=== PATIENT | female | born 1985 | race Caucasian/White ===

== ENCOUNTER 2023-02-05 12:54 | Outpatient (CLI) | payer BC, SELFPAY ==
[2023-02-05 21:39] LABS: Albumin* 4.3 g/dL (3.3-5.0); Chloride* 102 mmol/L (96-114); Sodium* 137 mmol/L (135-149)
[2023-02-05 21:40] LABS: Potassium* 4.1 mmol/L (3.6-5.1)
[2023-02-05 21:42] LABS: Alanine Aminotransferase* 24 U/L (4-35); Alkaline Phosphatase* 76 U/L (40-150); Aspartate Amino Transferase* 24 U/L (12-35); Bilirubin Total* 0.3 mg/dL (0.1-1.5); Blood Urea Nitrogen* 7 mg/dL (5-24); Carbon Dioxide* 27 mmol/L (20-32); Creatinine* 0.5 mg/dL (0.5-1.5); Estimated Glomerular Filt Rate 124 ml/min; Glucose* 130 mg/dL (60-115); Total Protein* 7.4 g/dL (6.0-8.3)
== END 2023-02-05 12:55 | disposition home or self-care (01) ==
PROVIDERS: PCP Physician Assistant Medical; Visit Provider Physician Assistant Medical
DX: F41.9 Anxiety disorder, unspecified (principal); R05.1 Acute cough; I10 Essential (primary) hypertension
CPT/HCPCS: 80053; 84443

== ENCOUNTER 2023-02-12 14:24 | Outpatient (CLI) | payer BC, SELFPAY | END 2023-02-12 14:25 | disposition home or self-care (01) | PROVIDERS: PCP Physician Assistant Medical; Visit Provider Family Medicine | DX: Z00.00 Encounter for general adult medical examination without abnormal findings (principal); N92.0 Excessive and frequent menstruation with regular cycle; E03.9 Hypothyroidism, unspecified; F41.9 Anxiety disorder, unspecified; Z13.6 Encounter for screening for cardiovascular disorders; Z86.32 Personal history of gestational diabetes | CPT/HCPCS: 80053; 80061; 84443 ==

== ENCOUNTER 2025-04-02 21:40 | Emergency (ER) | payer BC, SELFPAY ==
--- OUTSIDE RECORDS SUMMARY | 2025-04-02 21:42 | XMS_ITS | Encounter Summary ---
Author Organization [facility] Address [address] [place] [address] Care Team Providers Care Plywood Layup Line Back Feeder Name Role Phone Carissa Isaac MD Primary Care Provider [phone] Encounter Details Date Type Department Care Team (Late st Contact Info) Description 05/26/2016 Consent for Procedure/Treatment [facility] Department Social History Tobacco Use Types Packs/Day Years Used Date Smoking Tobacco: Never Smokeless Tobacco: Never Alcohol Use Standard Drinks/Week Comments Yes 0 (1 standard drink = 0.6 oz pur e alcohol) occassionally Comments No Sex and Gender Information Value Date Recorded Sex Assigned at Not on file Legal Sex Female 4:58 AM CDT Gender Identity Not on file Sexual Orientation Not on file 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
--- OUTSIDE RECORDS SUMMARY | 2025-04-02 21:42 | XMS_ITS | Encounter Summary ---
Author Organization [facility] Address [address] [place] [address] Care Team Providers Care Trail Construction Worker Name Role Phone Carissa Isaac MD Primary Care Provider [phone] Encounter Details Date Type Department Care Team (Late st Contact Info) Description 01/02/2013 Emergency Room External to [facility] Social History Tobacco Use Types Packs/Day Years Used Date Smoking Tobacco: Never Smokeless Tobacco: Never Alcohol Use Standard Drinks/Week Comments No 0 (1 standard drink = 0.6 oz pur e alcohol) Comments No Sex and Gender Information Value Date Recorded Sex Assigned at Not on file Legal Sex Female 4:58 AM CDT Gender Identity Not on file Sexual Orientation Not on file documented as of this encounter Progress Notes * [facility], PROVIDER - 01/02/2013 12:00 AM CST MANAGER documented in this encounter Plan of Treatment Not on file documented as of this encounter Visit Diagnoses Not on filedocumented in this encounter Additional Health Concerns Infection Onset Date Last Indicated Resolved Time R/O COVID19 05/27/2020 05/27/2020 05/30/2020 7:18 PM CDT R/O COVID19 06/14/2020 06/14/2020 06/16/2020 9:53 PM CDT documented as of this encounter Care Teams Trail Construction Worker Relationship Specialty Start Date End Date Carissa Isaac MD [address] [place] [address] PCP - General 03/13/09 documented as of this encounter
--- OUTSIDE RECORDS SUMMARY | 2025-04-02 21:42 | XMS_ITS | Clinical Summary ---
Author Organization [facility] Address [address] [place] [address] Care Team Providers Care Etl Analyst Name Role Phone Lee Ann Huizar MD Primary Care Provider [phone] Source Comments You are receiving this document as you are listed as the primary care provider,follow-up provider, or the patient has been referred to you for consultation.This is in compliance with the Medicare andMedicaid EHR Incentive Program,which states Providers who transition their patient to another setting of careor provider of care or refers their patient to another provider of care shouldprovide summary care record for each transition of care or referral. [facility] Allergies Active Allergy Reactions Criticality Noted Date Comments Hydrocodone Rash Low 06/17/2016 Oxycodone Other, see comments 06/15/2007 Itching and tachycardia Oxycodone-Acetaminoph en Breathing Difficulty High 11/18/2015 Medications * This document contains information received from the source organization and may not represent a complete record from that organization. Cetirizine HCl (ZYRTEC ALLERGY) 10 MG CAPS As directed PRN Act gregory fluticasone (FLONASE) 50 MCG/ACT nasal solutionIndicati ons:Nasal pain,Allergic rhinitis, cause unspecified Apply or instill 2 Sprays into both nostrils daily. 16 g 1 5 Active Additional Information Patient not taking.Reported on 06/17/2016 HYDROcodone-acet aminophen (AKA NORCO) 5-325 MG tablet Take 1-2 Tabs by mouth every 4 hours as needed for Pain. 20 Tab 0 6 Active Additional Information Patient not taking.Reported on 06/17/2016 Active Problems Problem Noted Date Diagnosed Date Calculus of gallbladder with out cholecystitis without obstruction 05/26/2016 Cholelithiasis 03/13/2015 Headache 11/30/2008 Allergic rhinitis 04/15/2007 Overview (08/15/2015): Epic Endometriosis of ovary 11/03/2005 Irritable bowel syndrome 06/02/2004 Generalized hyperhidrosis 06/02/2004 Other atopic dermatitis and related conditions 0 03/27/2004 Overview (06/12/2009): Comment: erioral dermatitis nasal region Resolved Problems Problem Noted Date Diagnosed Date Resolved Date in multigravida 09/09/2012 Supervision of high-risk 12/24/2009 10/22/2011 Gestational diabetes mellitus, antepartum 10/25/2009 11/01/2011 Encounter for supervision of normal in multigravida 08/19/2009 01/20/2010 Female genital symptoms 07/04/200906/2011 Overview (08/15/2015): Epic Urinary tract infection 07/04/200906/2011 Overview (08/15/2015): Epic Disorder of breast 06/17/2009 1 Overview (07/24/2015): ICD 10 Endometriosis of other specified sites 06/03/2009 08/15/2009 Abdominal pain, left lower quadrant 05/29/2009 08/15/2009 Abdominal pain 05/29/2009 08/15/2009 Overview (08/15/2015): Epic Vaginitis and vulvovaginitis 05/09/2009 08/15/2009 Overview (08/15/2015): Epic Allergic rhinitis due to ani mal hair and dander 02/21/2009 08/15/2009 Overview (08/15/2015): Epic Acute sinusitis 12/05/2008 08/15/2009 Overview (08/15/2015): Epic Contact dermatitis due to furs 10/08/2008 11/01/2011 Overview (08/15/2015): Epic Other anxiety states 10/08/2008 011 Malaise and fatigue 08/30/2008 08/15/20 09 Overview (07/07/2017): Other malaise and fatigue Acute pharyngitis 08/17/2008 08/15/2009 Insomnia 08/17/2008 10/22/2011 Overview (08/15/2015): Epic Rash and other nonspecific skin eruption 07/30/2008 08/15/2009 Muscle pain 12/29/2007 11/01/2011 Overview (07/07/2017): Epic ; Myalgia and myositis Dizziness and giddiness 12/21/200710/15 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 10/22/2011 Overview (07/07/2017): 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) Lumbago 06/15/2007 10/22/2011 Overview (06/13/2009): Comment: mild strain, resolving Pain in joint, pelvic region and thigh 04/15/2007 08/15/2009 Physiologic disturbance of t emperature regulation 01/18/2007 11/01/2011 Diarrhea 01/18/2007 11/01/2011 Diarrhea of presumed infectious origin 01/18/2007 08/15/2009 Acute lymphadenitis 06/03/2006 08/15/20 09 Absence of menstruation 09/17/200510/15 Ovarian cyst 09/01/2005 11/01/2011 Overview (07/07/2017): Other and unspecified ovarian cyst Pain in thoracic spine 06/02/200410/22 Immunizations Immunization Administration Dates Next Due DTP 08/02/1991, 7,04/05/1986,1985,1985 Flu Vac (3+ yrs) 07/29/2009,10/08/2008 H1N1 Miv Nov[employer] 4+ Yr Trac e Preserv (Inj)(Imm) 10/30/2009 HepB Ped/Adol (0-18 yrs) 06/02/2004,09/27/2001,1 MMR 04/30/1998,03/25/1987 MPSV4 (Menomune) 06/04/2004 OPV, Trivalent (Orimune or tOPV) 991,01/07/1987,01/29/1986,1985 TB Skin Test (PPD) 06/02/2004 Td (7+ yrs) 04/30/1998 Tdap 08/06/2008 Family History Medical History Relation Name Comments Hypertension Father Other Mother 2 ovarian cysts ; Other Sister 3 ovarian cysts;c olitis Relation Name Status Comments Father Alive CAD, CABG Mother 1 Ovarian cysts . Mother 2 Alive Brother 1 Alive Brother 2 Alive Daughter Alive Maternal Grandfather Maternal Grandmother Other Alive Paternal Grandfather Paternal Grandmother Sister 1 Ovarian cysts. 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 on file Not on file Not on file Last Filed Vital Signs Vital Sign Reading Time Taken Comments Blood Pressure 112/71 06/17/2016 3:05 PM CDT Pulse 77 06/17/2016 3:05 PM CDT Temperature 37 C (98.6 F) 06/17/2016 3:05 PM CDT Respiratory Rate 18 06/03/2016 12:30 PM CDT Oxygen Saturation 100% 06/03/2016 12:30 PM CDT Inhaled Oxygen Concentration - - Weight 51.7 kg (114 lb) 06/03/2016 7:45 AM CDT Height 162.6 cm (5' 4) 06/03/2016 7:45 AM CDT Body Mass Index 19.57 06/03/2016 7:45 AM CDT Plan of Treatment Health Maintenance Due Date Last Done Comments Hep C Screening (Preventive Services) 1985 Cervical Cancer Screening 01/02/20162014, 12/25/2013, 04/25/2012, Additional history exists Adult Preventive Visit 01/02/2017 01/02/2015, 2013 DTaP/Tdap/Td Vaccine (7 - Tdap) 08/06/2018 08/06/2008, 04/30/1998, 08/02/1991, Additional history exists COVID-19 Vaccine (2023- season) 2024 Influenza Vaccine (Season Ended) 2025 07/29/2009, 10/08/2008 Zoster/Shingles Vaccine (1 of 2) 2035 IPV (Polio) Vaccine Completed 08/02/1991, 01/07/1987, 01/29/1986, Additional history exists HepB Vaccine Completed 06/02/2004, 09/15, 09/13/1998 MCV4 Vaccine Aged Out 06/04/2004 No longer eligi ble based on patient's age to complete this topic HIV Screening (Preventive Services) Completed 06/03/2012, 06/14/2009, 06/14/2009 HPV Vaccine Aged Out No longer eligi ble based on patient's age to complete this topic HepA Vaccine Aged Out No longer eligi ble based on patient's age to complete this topic Hib Vaccine Aged Out No longer eligi ble based on patient's age to complete this topic Meningococcal B Vaccine Aged Out No l onger eligible based on patient's age to complete this topic Pneumococcal Vaccine Aged Out No long er eligible based on patient's age to complete this topic Procedures Procedure Name Priority Date/Time Associated Diagnosis Comments PAP TEST, ROUTINE Routine 01/02/2015 2:3 3 PM AUTOMATION TEST ENGINEER Encounter for screening for malignant neoplasm of cervix HIV ANTIBODY Routine 06/03/2012 2:27 PM CDT Supervision of other high-risk from Last 3 Months or Most Recently Relevant to Health Maintenance Results * PAP TEST, ROUTINE (01/02/2015 2:33 PM AUTOMATION TEST ENGINEER) Cytology, Pap (NOTE) Histopathology Technician Cytology Report Patient Name: JUDE SALGADO Taken: 01/02/2015 Received: 01/03/2015 Reported: 01/11/2015 Physician(s): LEE ANN HUIZAR ([id number]) Source of Specimen Pap Test, Routine Cervical/Endocervi sharlene: Specimen Adequacy Satisfactory for evaluation. Endocervical component absent. Final Cytologic Interpretation/Res ult NEGATIVE FOR INTRAEPITHELIAL LESION OR MALIGNANCY (NILM) Electronically Signed Out By Jackie HUTCHINS (ASCP) Jackie HUTCHINS (ASCP) Pap Smear History Date of Last Menstrual Period: 12/19/2014 Microscopic Description Microscopic examination is performed. [facility] Department of Pathology [address] [place] [id number] [facility] 01/02/2015 2:33 PM AUTOMATION TEST ENGINEER 01/03/2015 10:03 AM AUTOMATION TEST ENGINEER us Lee Ann Huizar MD LAB_1 Final Result Performing Organization Address City/[facility]/ZIP Co de Phone Number [facility] [phone] * HIV 1/2 Antibody[0404] (06/03/2012 2:27 PM CDT) HIV 1/2 Antibody Negative (Non Reactive) [facility] Comment: HIV Antibody testing may be falsely negative during the window period. If the patient has had recent exposure (within the past four weeks), consider contacting Infectious Diseases for clarification. [facility] 06/03/2012 2:27 PM CDT 06/03/2012 2:30 PM CDT us Lee Ann Huizar MD LAB_1 Final Result [facility] [address] [address] from Last 3 Months or Most Recently Relevant to Health Maintenance Insurance BCBS OUT OF STATE BCBS OUT OF STATE Advance Directives * Full Code (Latest Code Status on File) Date Activated Date Inactivated Comments 06/03/2016 7:49 AM 06/03/2016 5:38 PM Care Teams Etl Analyst Relationship Specialty Start Date End Date Lee Ann Huizar MD [address] [place] [address] PCP - General 03/13/09
--- OUTSIDE RECORDS SUMMARY | 2025-04-02 21:42 | XMS_ITS | Clinical Summary ---
Author Organization [facility] Address [address] [place] [address] Care Team Providers Care Hose Tester Name Role Phone Clinic, [facility] Primary Care Provider Allergies Active Allergy Reactions Criticality Noted Date Comments Hydrocodone Rash Low 06/17/2016 Oxycodone-Acetaminophen Palpitations,Dif ficulty breathing High 10/01/2015 Medications Ferrous Sulfate (IRON SUPPLEMENT PO) Activ e norethindrone-e thinyl estradiol (ORTHO-NOVUM 1-35 TAB,NORTREL 1-35 TAB) 1-35 MG-MCG tablet Take 2 tablets daily until bleeding stops, then take 1 tablet daily until follow-up. 30 tablet 1 03/11/2019 Active Active Problems Problem Noted Date Diagnosed Date Excessive or frequent menstruation 02/08/2017 Iron deficiency anemia due to chronic blood loss 01/29/2017 Endometriosis 01/29/2017 Calculus of gallbladder with out cholecystitis without obstruction 05/26/2016 Screening for cervical cancer Overview (08/29/2018): Normal paps [id number], 2011 and 2015 per Care Everywhere Immunizations Immunization Administration Dates Next Due HepB 06/02/2004,09/27/2001,09/13/1998 Historical DTP/aP 08/02/1991, 7,04/05/1986,01/29/1986,1985 Influenza (intradermal) 10/30/2009,10/08/2008 MMR (MMRII) 04/30/1998,03/25/1987 Meningococcal,unspecified 06/04/2004 OPV, trivalent, live 08/02/1991,01/07/1987,01/29,1985 TD,PF 7+ (Tenivac) 04/30/1998 TDAP Vaccine (Adacel) 08/06/2008 Family History Medical History Relation Comments Coronary Artery Disease Father Ovarian Cancer Maternal Aunt Other Cancer Maternal Grandfather Prostate Cancer Maternal Grandfather Breast Cancer Maternal Grandmother Heart Defect Maternal Grandmother Breast Cancer Mother Breast Cancer Paternal Grandmother Crohn's Disease Sister Relation Status Comments Father Maternal Aunt Maternal Grandfather Maternal Grandmother Mother Paternal Grandfather Paternal Grandmother Sister Social History Tobacco Use Types Packs/Day Years Used Date Smoking Tobacco: Never Smokeless Tobacco: Never Alcohol Use Standard Drinks/Week Comments Yes 0 (1 standard drink = 0.6 oz pur e alcohol) PHQ-2 Answer Date Recorded PHQ-2 Score 2 08/19/2018 Adolescent Education Answer Date Record ed Getting School Help Needed Not on file 08/06 Comments No Sex and Gender Information Value Date Recorded Sex Assigned at Not on file Legal Sex Female 4:42 PM CDT Gender Identity Not on file Sexual Orientation Not on file Last Filed Vital Signs Vital Sign Reading Time Taken Comments Blood Pressure 108/62 03/11/2019 3:30 PM CDT Pulse 76 03/11/2019 3:30 PM CDT Temperature 37.2 C (98.9 F) 03/11/2019 12:21 PM CDT Respiratory Rate 16 03/11/2019 3:58 PM CDT Oxygen Saturation 99% 03/11/2019 3:45 PM CDT Inhaled Oxygen Concentration - - Weight 52 kg (114 lb 10.2 oz) 03/11/2019 12:21 P M CDT Height 162.6 cm (5' 4) 03/11/2019 12:21 PM CDT Body Mass Index 19.68 03/11/2019 12:21 PM CDT Plan of Treatment Not on file Insurance BCBS OUT OF STATE [place] OF [place] Care Teams Hose Tester Relationship Specialty Start Date End Date [facility] [address] [place] [address] PCP - General 03/11/19
--- OUTSIDE RECORDS SUMMARY | 2025-04-02 21:42 | XMS_ITS | Encounter Summary ---
Author Organization [facility] Address [address] [place] [address] Care Team Providers Care Restaurant And Bar Manager Name Role Phone Carissa Isaac MD Primary Care Provider [phone] Encounter Details Date Type Department Care Team (Late st Contact Info) Description 12/26/2012 Outside Hospital External to External, [place] [address] H AND P Social History Tobacco Use Types Packs/Day Years Used Date Smoking Tobacco: Never Smokeless Tobacco: Never Alcohol Use Standard Drinks/Week Comments No 0 (1 standard drink = 0.6 oz pur e alcohol) Comments Unknown Sex and Gender Information Value Date Recorded Sex Assigned at Not on file Legal Sex Female 4:58 AM CDT Gender Identity Not on file Sexual Orientation Not on file documented as of this encounter Progress Notes * External, Provider - 12/26/2012 12:00 AM CST TERMAN documented in this encounter Plan of Treatment Not on file documented as of this encounter Visit Diagnoses Not on filedocumented in this encounter Additional Health Concerns Infection Onset Date Last Indicated Resolved Time R/O COVID19 05/27/2020 05/27/2020 05/30/2020 7:18 PM CDT R/O COVID19 06/14/2020 06/14/2020 06/16/2020 9:53 PM CDT documented as of this encounter Care Teams Restaurant And Bar Manager Relationship Specialty Start Date End Date Carissa Isaac MD [address] [place] [address] PCP - General 03/13/09 documented as of this encounter
--- OUTSIDE RECORDS SUMMARY | 2025-04-02 21:42 | XMS_ITS | Clinical Summary ---
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 CT) Active 01/23 Lico Carter MD Burning mouth syndrome Paresthesia 01008615 (SNOMED CT) Active 01/23 Lico Carter MD Paresthesia Loss of coordination 259368999 (SNOMED CT) Active 06/06 Max Gama MD Decreased coordination Visual changes 47097501 (SNOMED CT) Active 06/06 Max Gama MD Disorder of vision Medications Medication Instructions Start Date Stop Date Generic Name NDC Provider Gxffq-[id number] Ethyl Esters (Fish Oil) Unknown Strength CAP Daily Gcala-5-Ufir Eth yl Esters (Fish Oil) Unknown Strength CAP System Maintenance VITAMIN D2 10 MCG (400 UNIT) TABS Twice A Day Cholecalciferol (Vitamin D) Unknown Strength TAB 42969999651 System Maintenance Ascorbic Acid (Vitamin C) Unknown Strength TAB Daily Ascorbic Acid (Vitamin C) Unknown Strength TAB [id number] System Maintenance Medications Administered No information available. Allergies, Adverse Reactions, Alerts Allergy Name Reaction Description Start Date Severity Statu s Provider HYDROCODONE Moderate Active Max Gama MD Oxycodone rapid heartbeat and itching Severe Active Max Gama MD Acetaminophen Rash Mild Active Beatriz Gama MD Results Date Name Value Unit Range Flag Description Office Visit: DISCOORDINATIO N/VISION CHANGES 06/06/20 09:07- 06/06/20 09:0... MEDS REVIEW Done Documenta tion of current medications (procedure) SMOK STATUS never smoker Tobacco smoking status Internal Other: Authorizatio n - OBS [email or web address] Yes Authoriza tion: Release of Information - Authorize [facility] - Payment and Healthcare Operations ROIAUTHOTHER Yes Authoriz ation: Release of Information - Authorize Others/Insurance - Payment and Healthcare Operations HIECONSENT Yes Consent To Release information to the Health Information Exchange (HIE) [email or web address] Yes Authorizat ion: Authorization for [facility] to leave messages, voicemail, send text messages, send emails AUTHRELHCARE Yes Authoriz ation: Release/Retrieval of Information to/from Healthcare Facilities, Pharmacy Benefit Payers and Providers AUTHPRIVPRAC Yes Authoriz ation: Notice of privacy practices AUTHBENEFIT Yes Authoriza tion: Assignment of Benefits and Payment Agreement Internal Other: Verbal Autho rization/Emergency Contact - OBS VERBAL_EMER Done Verbal au thorization and emergency contact Replaced Document: (P) PROTE IN, TOTAL AND PROTEIN ELECTROPHORESIS WITH IMMUNOFI ... VIT B6 * VITAMIN B6, P LASMA HGBA1C * % Hemoglobin A1c/Hemoglobin, total in Blood - % B-12 * pg/mL Cobalamin (Vi tamin B12) [Mass/volume] in Serum or Plasma TSH * u[iU]/mL Thyrotropin [Units/volume] in Serum or Plasma SSB * Sjogren's syndrome-B, extractable nuclear Ab, serum SSA * Sjogren's syndrome-A, extractable nuclear Ab, serum SCL 70 AB * SCL-70 extr actable nuclear Ab, serum CRP * mg/dL C reactive pr otein [Mass/volume] in Serum or Plasma C4 COMPLIMEN * mg/dL Compleme nt C4 [Mass/volume] in Serum or Plasma [id number] * GE use only - for LinkLogic import when terms are not otherwise specified ANASCR IFA * FAIZA SCREEN , IFA LYME DIS AB * Borrelia burgdorferi.VlsE1+pe pC10 Ab [Units/volume] in Serum by Immunoassay TTG * U/mL TTG (tissue transglutaminase antibody) ESR * mm/h Erythrocyte sedimentation rate by Westergren method METHYL MALON * nmol/L methylma lonic acid (MMA), serum CPK 39 U/L 29-143 N Creatine hermilo se [Enzymatic activity/volume] in Serum or Plasma HIV AB * HIV 2 gp125 A b [Presence] in Serum by Immunoblot INTRP * Interpretatio n ABNPROTBND3 * g/dL Abnormal Protein Band 3, g/dL ABNPROTBND2 * g/dL Abnormal Protein Band 2, g/dL ABNPROTBND * g/dL Abnormal P rotein Band 1, g/dL GAMMA GLOB * mg/dL Gamma glob ulin [Mass/volume] in Serum or Plasma by Electrophoresis [id number] * g/dL beta 2 g lobulin [id number] * g/dL beta 1 g lobulin ALPHA 2 GLOB * Alpha 2 globulin [Mass/volume] in Serum or Plasma by Electrophoresis ALPH-1 SR PE * g/dL alpha-1 globulin, serum, by protein electrophoresis ALBUM SER PE * g/dL albumin, serum by protein electrophoresis IFEINTERPUR * immunofix ation electrophoresis interpretation, urine PROTEIN, TOT * g/dL Protein [Mass/volume] in Serum or Plasma Plan of Care Type Date Detail Referral Other Referral Pending order Follow up after testing Pending order Follow up after testing Pending order MRI-Brain W/WO Pending order Instructions for Staff Pending order Physical Therapy Pending order Follow up with N eurologist or AJ Pending order Follow up with N eurologist or AJ Pending Order exclud ed from report: Pending order Follow up with N eurologist or AJ Pending order MRI-Brain W/WO Pending order MRI-Brain W/O Pending order MRI-Cervical W/O Pending order Follow up after testing Pending order Follow up after testing Pending Order exclud ed from report: Pending order FAIZA Pending order C Reactive Prote in (CRP) Qn Pending order CK (Creatine Kin ase) Total Pending order Complement C3 Pending order Complement C4 Pending order ESR (Sedimentati on Rate) Pending order Hemoglobin A1C Pending order HIV 1/2 Ab Scree david Pending order Immunofixation S pramod w/Electrophoresis Pending order Lyme Total Ab w/ Reflex (reflex to Western Blot) Pending order Methylmalonic Ac id Serum (MMA) Pending order Sjogren's Ab - S SA/SSB (ANTI-Ro/ANTI-La) Pending order t-Transglutamina se (tTG) IgA Pending order TSH Pending order Vitamin B12 Pending order Vitamin B6 (Pyri doxine) - fasting after midnight Pending order Scleroderma (Sc1 70) Antibody Pending order Obtain imaging r eport and CD Pending order Obtain imaging r eport and CD Pending Order exclud ed from report: Procedures Code Procedure Name Date Entry Date [id number] MRI-Brain W/WO CPT-V5059B ProHance Gadolinium-based MR Contrast - 1 0 ml vial CPT-10611 MRI Brain W/WO ORDERS Follow up with Neurologist or AJ ORDERS Other Referral ORDERS Instructions for Staff 05/08 ORDERS Physical Therapy ORDERS Follow up with Neurologist or AJ CPT-17667 MRI Brain W/ CPT-H4588F ProHance Gadolinium-based MR Contrast - 1 0 ml vial [id number] MRI-Brain W/WO CPT-72938 MRI Brain W/O CPT-80548 MRI Cervical W/O [id number] MRI-Brain W/O [id number] MRI-Cervical W/O ORDERS Immunofixation Serum w/Electrophoresis 05/02/11 ORDERS HIV 1/2 Ab Screening ORDERS Vitamin B6 (Pyridoxine) - fasting after m idnight ORDERS Follow up after testing 2023 ORDERS CK (Creatine Kinase) Total 2 ORDERS ESR (Sedimentation Rate) 02/15/11 ORDERS Hemoglobin A1C ORDERS TSH ORDERS Vitamin B12 ORDERS Complement C3 ORDERS Complement C4 ORDERS Sjogren's Ab - SSA/SSB (ANTI-Ro/ANTI-La) ORDERS Scleroderma (Sc170) Antibody ORDERS C Reactive Protein (CRP) Qn ORDERS Lyme Total Ab w/Refl ex (reflex to Western Blot) ORDERS t-Transglutaminase (tTG) IgA ORDERS FAIZA ORDERS Methylmalonic Acid Serum (MMA) [id number] Documentation of current medicatio ns ORDERS Obtain imaging report and CD Vital Signs Date Name Value Unit Description Weight Measured `125 [lb_av] weight E& M Weight Measured `125 [lb_av] weight E& M Height 64 [in_us] height E&M BMI (Body Mass Index) 19.29 kg/m2 Bod y Mass Index (Ratio) BP Diastolic 81 mm[Hg] blood pressu re, diastolic BP Systolic 137 mm[Hg] blood pressur e, systolic Immunizations No information available. Advance Directives No information available.
--- OUTSIDE RECORDS SUMMARY | 2025-04-02 21:42 | XMS_ITS | Encounter Summary ---
[facility] Organization [facility] Address [address] [place] [address] Care Team Providers Care Shroudman Name Role Phone Carissa Isaac MD Primary Care Provider [phone] Encounter Details Date Type Department Care Team (Late st Contact Info) Description 12/26/2012 Outside Hospital External to External, [place] [address] DELIVERY NOTE Social History Tobacco Use Types Packs/Day Years [...] External, Provider - 12/26/2012 12:00 AM CST RIMENTAL PHYSICIST documented in this encounter Plan of Treatment Not on file documented as of this encounter Visit Diagnoses Not on filedocumented in this encounter Additional Health Concerns Infection Onset Date Last Indicated Resolved Time R/O COVID19 05/27/2020 05/27/2020 05/30/2020 7:18 PM CDT R/O COVID19 06/14/2020 06/14/2020 06/16/2020 9:53 PM CDT documented as of this encounter Care Teams Shroudman Relationship Specialty Start Date End Date Carissa Isaac MD [address] [place] [address] PCP - General 03/13/09 documented as of this encounter
--- OUTSIDE RECORDS SUMMARY | 2025-04-02 21:42 | XMS_ITS | Clinical Summary ---
Author Organization [facility] Address [address] [place] [address] Care Team Providers Care Gore Seamer Name Role Phone Clinic, No Pcp Or Primary Care Provider Unavaila ble Allergies Active Allergy Reactions Criticality Noted Date Comments Oxycodone-Acetaminophen Palpitations 10/01/2015 Medications No known medications Active Problems No known active problems Immunizations Immunization Administration Dates Next Due Tdap 08/06/2008 Family History Medical History Relation Name Comments Heart Disease Father triple bypass Hypertension Father Cancer-ovarian Maternal Aunt Amparo Cancer Maternal Grandfather lymphom a, testicular Cancer-prostate Maternal Grandfather Diabetes Maternal Grandfather Cancer-breast Maternal Grandmother Heart Disease Maternal Grandmother [place] Psychiatric illness Maternal Uncle Gerardo suicid e Cancer-breast Mother bilateral mast ectomy Cancer-breast Paternal Grandmother Other Sister crohns/colitis Relation Name Status Comments Father Maternal Aunt Amparo Alive Maternal Grandfather Maternal Grandmother Maternal Uncle Gerardo Alive Mother Paternal Grandmother Sister Social History Tobacco Use Types Packs/Day Years Used Date Smoking Tobacco: Former Cigarettes 0.3 2 Smokeless Tobacco: Never Comments:smoked for a couple years as a teenager Alcohol Use Standard Drinks/Week Comments Yes 2 (1 standard drink = 0.6 oz pur e alcohol) Comments No Sex and Gender Information Value Date Recorded Sex Assigned at Not on file 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 Gender Identity Not on file Sexual Orientation Not on file Obstetrics History Last Filed Vital Signs Vital Sign Reading Time Taken Comments Blood Pressure 138/96 05/17/2019 7:22 PM CDT Pulse 83 05/17/2019 7:22 PM CDT Temperature 36.8 C (98.2 F) 05/17/2019 7:22 PM CDT Respiratory Rate 16 05/17/2019 7:22 PM CDT Oxygen Saturation 100% 05/17/2019 7:22 PM CDT Inhaled Oxygen Concentration - - Weight 51.7 kg (114 lb) 02/18/2016 10:26 AM CDT Height 163.8 cm (5' 4.5) 02/18/2016 10:26 AM CD T Body Mass Index 19.27 02/18/2016 10:26 AM CDT Plan of Treatment Health Maintenance Due Date Last Done Comments Depression screening for age 12+ 1997 HIV for age 15-65 2000 Hepatitis C screening for age 18-79 2003 BMI (ht and wt on same day) for age 18+ 02/17/2017 02/18/2016 Pap test for age 21-65 07/16/2018 [facility] Tetanus booster 08/06/2018 08/06/2008 COVID-19 vaccine series (2023- season) 2024 Influenza Vaccine (Season Ended) 2025 Tdap Completed 08/06/2008 Pneumococcal series for age 6-49 Aged Out No longer eligible based on patient's age to complete this topic Insurance [facility] Care Teams Gore Seamer Relationship Specialty Start Date End Date Clinic, No Pcp Or . PCP - General 05/17/19
--- OUTSIDE RECORDS SUMMARY | 2025-04-02 21:42 | XMS_ITS | Encounter Summary ---
Author Organization [facility] Address [address] [place] [address] Care Team Providers Care Health Outreach Worker Name Role Phone Clinic - [facility] Primary Ca re Provider Soumya Hernandez MD Unavailable [phone] Soumya Hernandez MD Unavailable [phone] [facility] Primary Care Provider Lani Cyr APRN BASKET PATCHER Unavailable [phone] Soumya Hernandez MD Unavailable [phone] Encounter Details Date Type Department Care Team (Late st Contact Info) Description 07/09/2018 [facility] [place] [facility] [address] [place] [address] [facility] Social History Tobacco Use Types Packs/Day Years Used Date Smoking Tobacco: Never Alcohol Use Standard Drinks/Week Comments [...] Diagnoses Not on filedocumented in this encounter Care Teams Health Outreach Worker Relationship Specialty Start Date End Date Clinic - [facility] [address] [place], [place] [id number] PCP - General 07/08/18 03/10/19 Soumya Hernandez MD [address] [address] PCP - Assigned PCP 08/21/18 01/17/19 [facility], [address] [address] PCP - General 03/11/19 Soumya Hernandez MD [address] [address] Assigned PCP 08/21/18 08/19/19 Lani Cyr APRN [facility] [address] [place] [address] Assigned PCP 08/20/19 02/03/20 Soumya Hernandez MD [address] [address] Assigned PCP 02/04/20 08/23/21 documented as of this encounter
--- OUTSIDE RECORDS SUMMARY | 2025-04-02 21:42 | XMS_ITS | Encounter Summary ---
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
--- OUTSIDE RECORDS SUMMARY | 2025-04-02 21:42 | XMS_ITS | Encounter Summary ---
Author Organization [facility] Address [address] [place] [address] Care Team Providers Care Stars Coordinator Name Role Phone [facility] Primary Care Provider Encounter Details Date Type Department Care Team (Late st Contact Info) Description 07/03/2024 [facility] [address] [place] [address] [facility] Social History Tobacco Use Types Packs/Day Years [...] filedocumented in this encounter Additional Health Concerns Assessment Noted Time PHQ-9 Depression Total Score: 5 08/20/20 18 7:13 AM CDT documented as of this encounter Care Teams Stars Coordinator Relationship Specialty Start Date End Date Clinic, [facility] [address] [place] [address] PCP - General 03/11/19 documented as of this encounter
--- OUTSIDE RECORDS SUMMARY | 2025-04-02 21:42 | XMS_ITS | Encounter Summary ---
Author Organization [facility] Address [address] [place] [address] Care Team Providers Care Social Science Instructor Name Role Phone Carissa Isaac MD Primary Care Provider [phone] Encounter Details Date Type Department Care Team (Late st Contact Info) Description 01/02/2013 Emergency Room External to TELEPHONE CALL Social History Tobacco Use Types Packs/Day Years [...] as of this encounter Progress Notes * [facility], PROVIDER - 01/02/2013 12:00 AM CST SHADE JOINER documented in this encounter Plan of Treatment Not on file documented as of this encounter Visit Diagnoses Not on filedocumented in this encounter Additional Health Concerns Infection Onset Date Last Indicated Resolved Time R/O COVID19 05/27/2020 05/27/2020 05/30/2020 7:18 PM CDT R/O COVID19 06/14/2020 06/14/2020 06/16/2020 9:53 PM CDT documented as of this encounter Care Teams Social Science Instructor Relationship Specialty Start Date End Date Carissa Isaac MD [address] [place] [address] PCP - General 03/13/09 documented as of this encounter
--- OUTSIDE RECORDS SUMMARY | 2025-04-02 21:43 | XMS_ITS | Encounter Summary ---
Author Organization [facility] Address [address] [place] [address] Care Team Providers Care Baffle Mounter Name Role Phone Carissa Isaac MD Primary Care Provider [phone] Encounter Details Date Type Department Care Team (Late st Contact Info) Description 06/14/2014 Correspondence External to External, [place] [address] TREATMENT NOTIFICATION Social History Tobacco Use Types Packs/Day Years [...] documented as of this encounter Care Teams Baffle Mounter Relationship Specialty Start Date End Date Carissa Isaac MD [address] [place] [phone] PCP - General 03/13/09 documented as of this encounter
--- OUTSIDE RECORDS SUMMARY | 2025-04-02 21:43 | XMS_ITS | Encounter Summary ---
Author Organization [facility] Address [address], [place] [address] Care Team Providers Care Audio Visual Equipment Rental Clerk Name Role Phone Carissa Isaac MD Primary Care Provider [phone] Encounter Details Date Type Department Care Team (Late st Contact Info) Description 12/04/2012 Correspondence [facility] CAFE TEAM MEMBER [address] [facility] [place] [address] Vi Bojorquez MD [address] [place] [address] [employer] DISABILITY CLAIM FORM Social History Tobacco Use Types Packs/Day Years Used Date Smoking Tobacco: Never Smokeless Tobacco: Never Alcohol Use Standard Drinks/Week Comments No 0 (1 standard drink = 0.6 oz pur e alcohol) Comments Yes Sex and Gender Information Value Date Recorded Sex Assigned at Not on file Legal Sex Female 4:58 AM CDT Gender Identity Not on file Sexual Orientation Not on file documented as of this encounter Progress Notes * Vi Bojorquez MD - 12/04/2012 12:00 AM CST CLIPPER documented in this encounter Plan of Treatment Not on file documented as of this encounter Visit Diagnoses Not on filedocumented in this encounter Additional Health Concerns Infection Onset Date Last Indicated Resolved Time R/O COVID19 05/27/2020 05/27/2020 05/30/2020 7:18 PM CDT R/O COVID19 06/14/2020 06/14/2020 06/16/2020 9:53 PM CDT documented as of this encounter Care Teams Audio Visual Equipment Rental Clerk Relationship Specialty Start Date End Date Carissa Isaac MD [address] [place] [address] PCP - General 03/13/09 documented as of this encounter
--- OUTSIDE RECORDS SUMMARY | 2025-04-02 21:43 | XMS_ITS | Encounter Summary ---
[facility] Address [address] [place] [address] Care Team Providers Care Senior Environmental Consultant Name Role Phone Carissa Isaac MD Primary Care Provider [phone] Encounter Details Date Type Department Care Team (Late st Contact Info) Description 03/30/2014 Emergency Room External to [facility], Provider HEADACHE-SINUS PRESSURE AND SORE THROAT Social History Tobacco Use Types Packs/Day Years [...] documented as of this encounter Care Teams Senior Environmental Consultant Relationship Specialty Start Date End Date Carissa Isaac MD [address] [place] [address] PCP - General 03/13/09 documented as of this encounter
[2025-04-02 21:45] VITALS: BP 145/94; PULSE 80; RESP 20; TEMP 36.7; O2SAT 98; BMI 23.0
--- NOTE | 2025-04-02 22:28 | ED_ITS ---
HPI - General Adult General Date Seen: 04/02/25 <Maggie Rae MD - Last Filed: 04/04/25 23:00> Chief complaint: Chest Pain <Maggie Rae MD - Last Filed: 04/04/25 23:00> Stated complaint: shortness of breath, chest pain/heart burn <Maggie Rae MD - Last Filed: 04/04/25 23:00> Time Seen by Provider: 04/02/25 22:17 <Maggie Rae MD - Last Filed: 04/04/25 23:00> History of Present Illness HPI narrative: Patient is a 39-year-old woman who is generally healthy aside from anxiety which she considers pre well controlled. She presents for evaluation of a couple of episodes of chest sensation today. One happened earlier today and the other happened just prior to coming in. She describes this as a sensation of expansion in the left side of her chest going into her neck and shoulder, lasting moments. Both of these episodes happen at rest, the 1st episode was just this expanding feeling and then she felt fine, so she blew that off. Tonight, the expanding sensation was followed by some heartburn and nausea, she says she called her sister who recommended that she come in. She does not have any prior history of coronary artery disease, hypertension, she does not smoke. She does note that her dad had bypass surgery at age 55. She does not get regular exercise but does not have any exertional symptoms. She has not had palpitations, lightheadedness or syncope. Denies any other recent illness or symptoms such as vomiting or diarrhea, fevers, cough, shortness of breath etcetera. She does not drink significantly although she did have a couple of drinks last night. She does not use any other substances. Here tonight with her . She did take a propranolol at home when this happened because she was starting to feel anxious about it and propanolol helps with her anxiety symptoms. At this time, symptoms have resolved including the heartburn sensation. She does not generally have problems with heartburn and is not on any medications for that. <Maggie Rae MD - Last Filed: 04/04/25 23:00> Related Data Home medications: Previous Rx's ?Medication ?Instructions ?Recorded propranolol 10 mg tablet 10 mg PO TID PRN anxiety #90 tabs 02/12/23 <Maggie Rae MD - Last Filed: 04/04/25 23:00> Allergies/adverse reactions: Allergies Allergy/AdvReac Type Severity Reaction Status Date / Time oxycodone Allergy Severe Palpitation Verified 04/02/25 21:50 s hydrocodone Allergy Mild Rash Verified 04/02/25 21:50 percocet Allergy Severe heart Uncoded 02/12/23 14:10 palpitations, shortness of breath <Maggie Rae MD - Last Filed: 04/04/25 23:00> Review of Systems Status of ROS: Reports: 10 or more systems reviewed and unremarkable except as noted in History and below <Maggie Rae MD - Last Filed: 04/04/25 23:00> [facility] Medical History: Medical History Microcytic anemia ?D50.9 - Iron deficiency anemia, unspecified (ICD-10) Menorrhagia ?N92.0 - Excessive and frequent menstruation with regular cycle (ICD-10) Gestational diabetes mellitus ?O24.419 - Gestational diabetes mellitus in , unspecified control (ICD-10) Endometriosis ?N80.9 - Endometriosis, unspecified (ICD-10) <Maggie Rae MD - Last Filed: 04/04/25 23:00> Surgical History: Surgical History S/P abdominal hysterectomy and left salpingo-oophorectomy ?Z90.710 - Acquired absence of both cervix and uterus (ICD-10) ?Z90.721 - Acquired absence of ovaries, unilateral (ICD-10) ?Z90.79 - Acquired absence of other genital organ(s) (ICD-10) <Maggie Rae MD - Last Filed: 04/04/25 23:00> Family History: Family History Mother Breast cancer A-fib Father Coronary artery disease, Onset Age: 55 High blood pressure Aunt Ovarian cancer Sister Crohn disease Thyroid disease Maternal Grandmother Coronary artery disease <Maggie Rae MD - Last Filed: 04/04/25 23:00> Social History: Social History Smoking Status: Former smoker service: No <Maggie Rae MD - Last Filed: 04/04/25 23:00> Exam Narrative: Exam Narrative: Vital signs reviewed In general, alert, nontoxic but age woman. She looks comfortable, breathing easily. Head: Normocephalic, atraumatic. Eyes: Sclera clear. Pupils equal and reactive. ENT: Mucous membranes moist. Neck: Supple without adenopathy. Heart: Overall heart is regular, she has a little bit of ectopy occasionally. No significant murmur. Lungs: Clear. No increased work of breathing, crackles or wheezes. Abdomen: Soft, nontender to palpation. Extremities: Well perfused, pulses intact. No significant edema. Neurologic: Alert, conversant. Speech fluent, face symmetric. Moves all extremities equally. Skin: Warm, dry well perfused. Affect: Normal. <Maggie Rae MD - Last Filed: 04/04/25 23:00> Const: Vital Signs, click to edit/add: Vital Signs - 24 hr 04/02/25 21:45 04/03/25 00:20 Temperature 98.1 F Pulse Rate [Pulse Oximeter] 80 64 Respiratory Rate 20 18 Blood Pressure [Le ft Upper Arm] 145/94 H 144/88 H Pulse Oximetry 98 99 Oxygen Delivery Me thod Room Air Room Air <Maggie Rae MD - Last Filed: 04/04/25 23:00> Vital Signs, click to edit/add: Vital Signs - 24 hr 04/02/25 21:45 04/03/25 00:20 Temperature 98.1 F Pulse Rate [Pulse Oximeter] 80 64 Respiratory Rate 20 18 Blood Pressure [Le ft Upper Arm] 145/94 H 144/88 H Pulse Oximetry 98 99 Oxygen Delivery Me thod Room Air Room Air <Mario Pena MD - Last Filed: 04/03/25 08:48> Course Course ED Course: An EKG done on arrival shows a sinus rhythm, ventricular rate of 80. No acute ST segment changes, normal corrected QT, normal T-waves. I will go ahead and put her on the monitor just to see if she is having any PVCs which perhaps could explain this unusual sensation she had in her chest. Overall my suspicion for cardiac etiology for her symptoms is relatively low, but will check some basic labs, including a troponin given her dad's history. She is PERC negative, I do not think clinically there is really any strong suggestion of PE here and I do not think she needs a D-dimer. On the monitor, she does have fairly frequent PVCs. I wonder if this initial sensation she had was the start of PVCs and she felt that 1st 1 more significantly. Retrospectively, she says that she has had these kinds of sensations not infrequently although she says she has always attributed them to gas bubbles. Her labs are reassuring, initial troponin is 0. Electrolytes including magnesium are normal. Her hemoglobin is 13.8. I have elected to do a 90 minute troponin, will just make sure that that is also normal. Overall, discussed with her I do not think these symptoms are likely related to anything like a heart attack, though the PVCs may certainly be contributing. No evidence of pneumothorax or infiltrate on chest x-ray. Discussed possibilities of esophageal spasm or gastroesophageal reflux. Given that she does not have routi ne problems with this, I think it is reasonable to just see how she does and if this is becoming something she has more frequently we would recommend PPI. For now, will be signed out to the oncoming physician to follow-up on the 2nd troponin. If negative, discharge home with outpatient follow-up in the next week. Return any time for severe symptoms new symptoms such as shortness of breath, fevers, fainting etcetera. She can try taking her propanolol little more regularly to see if that suppresses the PVCs. <Maggie Rae MD - Last Filed: 04/04/25 23:00> An EKG done on arrival shows a sinus rhythm, ventricular rate of 80. No acute ST segment changes, normal corrected QT, normal T-waves. I will go ahead and put her on the monitor just to see if she is having any PVCs which perhaps could explain this unusual sensation she had in her chest. Overall my suspicion for cardiac etiology for her symptoms is relatively low, but will check some basic labs, including a troponin given her dad's history. She is PERC negative, I do not think clinically there is really any strong suggestion of PE here and I do not think she needs a D-dimer. On the monitor, she does have fairly frequent PVCs. I wonder if this initial sensation she had was the start of PVCs and she felt that 1st 1 more significantly. Retrospectively, she says that she has had these kinds of sensations not infrequently although she says she has always attributed them to gas bubbles. Her labs are reassuring, initial troponin is 0. Electrolytes i ncluding magnesium are normal. Her hemoglobin is 13.8. I have elected to do a 90 minute troponin, will just make sure that that is also normal. Overall, discussed with her I do not think these symptoms are likely related to anything like a heart attack, though the PVCs may certainly be contributing. No evidence of pneumothorax or infiltrate on chest x-ray. Discussed possibilities of esophageal spasm or gastroesophageal reflux. Given that she does not have routine problems with this, I think it is reasonable to just see how she does and if this is becoming something she has more frequently we would recommend PPI. For now, will be signed out to the oncoming physician to follow-up on the 2nd troponin. If negative, discharge home with outpatient follow-up in the next week. Return any time for severe symptoms new symptoms such as shortness of breath, fevers, fainting etcetera. She can try taking her propanolol little more regularly to see if that suppresses the PVCs. Becky -- received Ms. Salgado in handoff at change of shift pending troponin. Reviewed glass wool blanket machine feeder noting frequent PVCs. Looked like some bigeminy as well. Stable vitals. IV fluids may help settle this down a little more. She did want to proceed with a L pending resulting final troponin. Repeat troponin was negative discharge per Dr. Rae <Mario Pena MD - Last Filed: 04/03/25 08:48> Vital Signs Vital signs: Initial Vital Signs Temperature 98.1 F 04/02/25 21:45 Temperature Source Temporal Artery Scan 04/02/25 21:45 Pulse Rate 80 04/02/25 21:45 Respiratory Rate 20 04/02/25 21:45 Blood Pressure 145/94 H 04/02/25 21:45 Blood Pressure Mean 111 H 04/02/25 21:45 Blood Pressure Position Sitting 04/02/25 21:45 Pulse Oximetry 98 04/02/25 21:45 Oxygen Delivery Method Room Air 04/02/25 21:45 Vital Signs Temperature 98.1 F 04/02/25 21:45 Pulse Rate 80 04/02/25 21:45 Respiratory Rate 20 04/02/25 21:45 Blood Pressure 145/94 H 04/02/25 21:45 Pulse Oximetry 98 04/02/25 21:45 Oxygen Delivery Method Room Air 04/02/25 21:45 Temperature 98.1 F 04/02/25 21:45 Pulse Rate 64 04/03/25 00:20 Respiratory Rate 18 04/03/25 00:20 Blood Pressure 144/88 H 04/03/25 00:20 Pulse Oximetry 99 04/03/25 00:20 Oxygen Delivery Method Room Air 04/03/25 00:20 <Maggie Rae MD - Last Filed: 04/04/25 23:00> Initial Vital Signs Temperature 98.1 F 04/02/25 21:45 Temperature Source Temporal Artery Scan 04/02/25 21:45 Pulse Rate 80 04/02/25 21:45 Respiratory Rate 20 04/02/25 21:45 Blood Pressure 145/94 H 04/02/25 21:45 Blood Pressure Mean 111 H 04/02/25 21:45 Blood Pressure Position Sitting 04/02/25 21:45 Pulse Oximetry 98 04/02/25 21:45 Oxygen Delivery Method Room Air 04/02/25 21:45 Vital Signs Temperature 98.1 F 04/02/25 21:45 Pulse Rate 80 04/02/25 21:45 Respiratory Rate 20 04/02/25 21:45 Blood Pressure 145/94 H 04/02/25 21:45 Pulse Oximetry 98 04/02/25 21:45 Oxygen Delivery Method Room Air 04/02/25 21:45 Temperature 98.1 F 04/02/25 21:45 Pulse Rate 64 04/03/25 00:20 Respiratory Rate 18 04/03/25 00:20 Blood Pressure 144/88 H 04/03/25 00:20 Pulse Oximetry 99 04/03/25 00:20 Oxygen Delivery Method Room Air 04/03/25 00:20 <Mario Pena MD - Last Filed: 04/03/25 08:48> Medications Administered Medications: Discontinued Medications Generic Name Dose Route Start Last Admin Trade Name Freq PRN Reason Stop Dose Admin Sodium Chloride 1,000 mls @ 1,200 mls/hr 04/03/25 00:25 04/03/25 00:20 0.9 % Sodium Chloride 1000 Ml IV 04/03/25 01:14 1,200 mls/hr .Q50M ONE Administration <Maggie Rae MD - Last Filed: 04/04/25 23:00> Discontinued Medications Generic Name Dose Route Start Last Admin Trade Name Tex PRN Reason Stop Dose Admin Sodium Chloride 1,000 mls @ 1,200 mls/hr 04/03/25 00:25 04/03/25 00:20 0.9 % Sodium Chloride 1000 Ml IV 04/03/25 01:14 1,200 mls/hr .Q50M ONE Administration <Mario Pena MD - Last Filed: 04/03/25 08:48> Medical Decision Making Lab Data Lab results reviewed: Yes I reviewed the patient's lab results <Maggie Rae MD - Last Filed: 04/04/25 23:00> Labs: Lab Results 04/02/25 04/03/25 Range/Units 22:45 00:20 WBC 8.34 (4.50-11.00) K/uL RBC 4.69 (4.00-5.20) m/uL Hgb 13.8 (12.0-16.0) gm/dL Hct 41.0 (33.0-51.0) % MCV 87 (80-100) fL MCH 29 (26-34) pg MCHC 34 (32-36) gm/dL RDW Coeff of Adina 11.8 (11.5-15.5) % Plt Count 265 (140-440) K/uL Neut % (Auto) 66.9 (42.0-72.0) % Lymph % (Auto) 19.2 L (20-44) % [place] % (Auto) 9.6 (0.0-11.0) % Eos % (Auto) 3.0 (0.0-7.0) % Baso % (Auto) 1.1 (0.0-3.0) % Neut # (Auto) 5.58 (1.7-7.0) K/uL Lymph # (Auto) 1.60 (0.90-2.90) K/uL [place] # (Auto) 0.80 (0.00-0.90) K/UL Eos # (Auto) 0.25 (0.00-0.50) K/uL Baso # (Auto) 0.09 (0.00-0.30) K/uL Abs Immat Gran (auto) 0.02 (0.00-0.30) K/uL Imm/Tot Granulo (auto) 0.2 % Sodium 139 (135-149) mmol/L Potassium 3.7 (3.6-5.1) mmol/L Chloride 104 (96-114) mmol/L Carbon Dioxide 28 (20-32) mmol/L Anion Gap 7 (7-15) mEq/L BUN 11 (5-24) mg/dL Creatinine 0.6 (0.5-1.5) mg/dL Estimated Creat Clear 108.70 Estimated GFR 117 ml/min Glucose 101 (60-115) mg/dL Calcium 9.1 (8.4-10.6) mg/dL Magnesium 2.0 (1.5-2.6) mg/dL POC Troponin I 0.00 L 0.00 L (0.01-0.04) ng/ml <Maggie Rae MD - Last Filed: 04/04/25 23:00> Lab Results 04/02/25 04/03/25 Range/Units 22:45 00:20 WBC 8.34 (4.50-11.00) K/uL RBC 4.69 (4.00-5.20) m/uL Hgb 13.8 (12.0-16.0) gm/dL Hct 41.0 (33.0-51.0) % MCV 87 (80-100) fL MCH 29 (26-34) pg MCHC 34 (32-36) gm/dL RDW Coeff of Adina 11.8 (11.5-15.5) % Plt Count 265 (140-440) K/uL Neut % (Auto) 66.9 (42.0-72.0) % Lymph % (Auto) 19.2 L (20-44) % [place] % (Auto) 9.6 (0.0-11.0) % Eos % (Auto) 3.0 (0.0-7.0) % Baso % (Auto) 1.1 (0.0-3.0) % Neut # (Auto) 5.58 (1.7-7.0) K/uL Lymph # (Auto) 1.60 (0.90-2.90) K/uL [place] # (Auto) 0.80 (0.00-0.90) K/UL Eos # (Auto) 0.25 (0.00-0.50) K/uL Baso # (Auto) 0.09 (0.00-0.30) K/uL Abs Immat Gran (auto) 0.02 (0.00-0.30) K/uL Imm/Tot Granulo (auto) 0.2 % Sodium 139 (135-149) mmol/L Potassium 3.7 (3.6-5.1) mmol/L Chloride 104 (96-114) mmol/L Carbon Dioxide 28 (20-32) mmol/L Anion Gap 7 (7-15) mEq/L BUN 11 (5-24) mg/dL Creatinine 0.6 (0.5-1.5) mg/dL Estimated Creat Clear 108.70 Estimated GFR 117 ml/min Glucose 101 (60-115) mg/dL Calcium 9.1 (8.4-10.6) mg/dL Magnesium 2.0 (1.5-2.6) mg/dL POC Troponin I 0.00 L 0.00 L (0.01-0.04) ng/ml <Mario Pena MD - Last Filed: 04/03/25 08:48> Imaging Data Chest x-ray: Attestation: I have reviewed the pertinent imaging results. <Magige Rae MD - Last Filed: 04/04/25 23:00> Radiologist's impression: Patient: Dori Salgado MR#: [id number] : 1985 Acct:[id number] Loc: ED Service Date: 04/02/[address]: Ordering Physician: Maggie Rae M.D. Date of Service: 04/02/25 Procedure(s): XR chest 1V portable Accession Number(s): [id number] cc: Maggie Rae M.D.; Provider,Not a Local~ For Patients: As a result of the Cures Act, medical imaging exams and procedure reports are released immediately into your electronic medical record. You may view this report before your referring provider. If you have questions, please contact your health care provider. INDICATION: Chest pain. TECHNIQUE: Chest radiograph, 1 view. COMPARISON: Chest radiograph 11/02/2024. FINDINGS: Cardiovascular/Mediastinum: Normal heart size. Unremarkable. Lungs: No focal consolidation. Airways: Trachea remains midline. Pleura: No pleural effusions or pneumothorax. Bones: No acute osseous abnormalities. Upper abdomen: Unremarkable. IMPRESSION: No acute cardiopulmonary process. Dictated by Jn Soto MD @ 04/02/2025 11:40:47 PM <Maggie Rae MD - Last Filed: 04/04/25 23:00> Discharge Plan Discharge Clinical Impression: Atypical chest pain, Frequent PVCs <Maggie Rae MD - Last Filed: 04/04/25 23:00> Patient Disposition: Home, Self-Care <Maggie Rae MD - Last Filed: 04/04/25 23:00> Condition: Improved <Maggie Rae MD - Last Filed: 04/04/25 23:00> Instructions: Chest Pain (ED), Premature Ventricular Contractions (ED) <Maggie Rae MD - Last Filed: 04/04/25 23:00> Additional Instructions: As discussed, you are having fairly frequent premature ventricular contractions. Sometimes people can feel these and they can be a little uncomfortable or unpleasant, but they are generally benign and not dangerous. Your lab tests are all reassuring, your chest x-ray is normal. I do not have a definitive explanation for your symptoms tonight, but there is no evidence of heart attack, collapsed lung, pneumonia, or other severe cause for your symptoms. I would recommend that you be seen in clinic for follow-up visit in the next week, particularly if you are continuing to have symptoms. You can try taking her propanolol more regularly to see if that decreases the PVCs. If at any time you have severe symptoms, fainting, high fevers, shortness of breath, or other worsening, return to the emergency department. <Maggie Rae MD - Last Filed: 04/04/25 23:00> Prescriptions: No Action propranolol 10 mg tablet 10 mg PO TID PRN (Reason: anxiety) Qty: 90 5RF <Maggie Rae MD - Last Filed: 04/04/25 23:00> Follow Up/Referrals: Provider,Not a Local [Primary Care Provider] <Maggie Rae MD - Last Filed: 04/04/25 23:00> Stand Alone Forms: MyHealth Info Instructions <Maggie Rae MD - Last Filed: 04/04/25 23:00>
--- OUTSIDE RECORDS SUMMARY | 2025-04-02 22:46 | XMS_ITS | Encounter Summary ---
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
--- OUTSIDE RECORDS SUMMARY | 2025-04-02 22:46 | XMS_ITS | Encounter Summary ---
Author Organization [facility] Address [address] [place] [address] Care Team Providers Care Mammography Technician Name Role Phone Carissa Isaac MD Primary Care Provider [phone] Encounter Details Date Type Department Care Team (Late st Contact Info) Description 12/26/2012 Outside Hospital External to External, [place] [address] DELIVERY NOTE Social History Tobacco Use Types [...] External, Provider - 12/26/2012 12:00 AM CST CAL OFFICER documented in this encounter Plan of Treatment Not on file documented as of this encounter Visit Diagnoses Not on filedocumented in this encounter Additional Health Concerns Infection Onset Date Last Indicated Resolved Time R/O COVID19 05/27/2020 05/27/2020 05/30/2020 7:18 PM CDT R/O COVID19 06/14/2020 06/14/2020 06/16/2020 9:53 PM CDT documented as of this encounter Care Teams Mammography Technician Relationship Specialty Start Date End Date Carissa Isaac MD [address] [place] [address] PCP - General 03/13/09 documented as of this encounter
--- OUTSIDE RECORDS SUMMARY | 2025-04-02 22:46 | XMS_ITS | Encounter Summary ---
Author Organization [facility] Address [address] [place] [address] Care Team Providers Care Potline Monitor Name Role Phone Carissa Isaac MD Primary Care Provider [phone] Encounter Details Date Type Department Care Team (Late st Contact Info) Description 03/30/2014 Emergency Room External to [facility], Provider HEADACHE-SINUS PRESSURE AND SORE [...] documented as of this encounter Care Teams Potline Monitor Relationship Specialty Start Date End Date Carissa Isaac MD [address] [place] [phone] PCP - General 03/13/09 documented as of this encounter
--- OUTSIDE RECORDS SUMMARY | 2025-04-02 22:46 | XMS_ITS | Encounter Summary ---
Author Organization [facility] Address [address] [place] [address] Care Team Providers Care Engineer Of System Development Name Role Phone Carissa Isaac MD Primary Care Provider Encounter Details Date Type [...] as of this encounter Progress Notes * [facility], PROVIDER - 01/02/2013 12:00 AM CST ER ENGINEER HELPER documented in this encounter Plan of Treatment Not on file documented as of this encounter Visit Diagnoses Not on filedocumented in this encounter Additional Health Concerns Infection Onset Date Last Indicated Resolved Time R/O COVID19 05/27/2020 05/27/2020 05/30/2020 7:18 PM CDT R/O COVID19 06/14/2020 06/14/2020 06/16/2020 9:53 PM CDT documented as of this encounter Care Teams Engineer Of System Development Relationship Specialty Start Date End Date Carissa Isaac MD [address] [place] [address] PCP - General 03/13/09 documented as of this encounter
--- OUTSIDE RECORDS SUMMARY | 2025-04-02 22:46 | XMS_ITS | Encounter Summary ---
Author Organization [facility] Address [address] [place] [address] Care Team Providers Care Photographer Aerial Name Role Phone [facility] Primary Care Provider Encounter Details Date Type Department Care Team (Late st Contact Info) Description 07/03/2024 [facility] [address] [place] [address] [facility] Social History Tobacco Use Types [...] documented as of this encounter Care Teams Photographer Aerial Relationship Specialty Start Date End Date Clinic, [facility] [address] [place] [address] PCP - General 03/11/19 documented as of this encounter
--- OUTSIDE RECORDS SUMMARY | 2025-04-02 22:46 | XMS_ITS | Encounter Summary ---
Author Organization [facility] Address [address] [place] [address] Care Team Providers Care Elevated Work Platform Operator Name Role Phone Clinic - [facility] Primary Ca re Provider Soumya Hernandez MD Unavailable [phone] Soumya Hernandez MD Unavailable [phone] [facility] Primary Care Provider Lani Cyr APRN INSTRUCTOR MILITARY SCIENCE Unavailable [phone] Soumya Hernandez MD Unavailable [phone] Encounter Details Date Type Department Care Team (Late st Contact Info) Description 07/09/2018 [facility] [address] [place] [address] [facility] Social History Tobacco Use Types Packs/Day [...] on filedocumented in this encounter Care Teams Elevated Work Platform Operator Relationship Specialty Start Date End Date Clinic - [facility] [address] [place], [place] [id number] PCP - General 07/08/18 03/10/19 Soumya Hernandez MD [address] [address] PCP - Assigned PCP 08/21/18 01/17/19 [facility], [address] [address] PCP - General 03/11/19 Soumya Hernandez MD [address] [address] Assigned PCP 08/21/18 08/19/19 Lani Cyr APRN [facility] [address] [place] [address] Assigned PCP 08/20/19 02/03/20 Soumya Hernandez MD [address] [address] Assigned PCP 02/04/20 08/23/21 documented as of this encounter
--- OUTSIDE RECORDS SUMMARY | 2025-04-02 22:46 | XMS_ITS | Clinical Summary ---
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 01/23 Lico Carter MD Burning mouth syndrome Paresthesia 43243888 (SNOMED CT) Active 01/23 Lico Carter MD Paresthesia Loss of coordination 418095504 (SNOMED CT) Active 06/06 Max Gama MD Decreased coordination Visual changes 80949320 (SNOMED CT) Active 06/06 Max Gama MD Disorder of vision Medications Medication Instructions Start Date Stop Date Generic Name NDC Provider Vxfyj-2-Odfd Ethyl Esters (Fish Oil) Unknown Strength CAP Daily Bldqq-5-Ymdm Eth yl Esters (Fish Oil) Unknown Strength CAP System Maintenance VITAMIN D2 10 MCG (400 UNIT) TABS Twice A Day Cholecalciferol (Vitamin D) Unknown Strength TAB [id number] System Maintenance Ascorbic Acid (Vitamin C) Unknown Strength TAB Daily Ascorbic Acid (Vitamin C) Unknown Strength TAB [id number] System Maintenance Medications Administered No information available. [...] [Mass/volume] in Serum or Plasma by Electrophoresis [id number] * g/dL beta 2 g lobulin [id number] * g/dL beta 1 g lobulin ALPHA [...] Procedures Code Procedure Name Date Entry Date [id number] MRI-Brain W/WO CPT-S2370O ProHance Gadolinium-based MR Contrast - 1 0 ml vial CPT-12059 MRI Brain W/WO ORDERS Follow up with Neurologist or AJ ORDERS Other Referral ORDERS Instructions for Staff 05/08 ORDERS Physical Therapy ORDERS Follow up with Neurologist or AJ CPT-69027 MRI Brain W/ CPT-Z3721E ProHance Gadolinium-based MR Contrast - 1 0 ml vial [id number] MRI-Brain W/WO CPT-47316 MRI Brain W/O CPT-95069 MRI Cervical W/O [id number] MRI-Brain W/O [id number] MRI-Cervical W/O ORDERS Immunofixation Serum w/Electrophoresis 05/02/11 [...] ORDERS FAIZA ORDERS Methylmalonic Acid Serum (MMA) [id number] Documentation of current medicatio ns ORDERS Obtain [...]
--- OUTSIDE RECORDS SUMMARY | 2025-04-02 22:46 | XMS_ITS | Encounter Summary ---
Author Organization [facility] Address [address] [place] [address] Care Team Providers Care Equine Breeder Name Role Phone Carissa Isaac MD Primary Care Provider [phone] Encounter Details Date Type Department Care Team (Late st Contact Info) Description 12/26/2012 Outside Hospital External to External, [place] [address] H AND P Social History Tobacco Use [...] External, Provider - 12/26/2012 12:00 AM CST T PREPARER documented in this encounter Plan of Treatment Not on file documented as of this encounter Visit Diagnoses Not on filedocumented in this encounter Additional Health Concerns Infection Onset Date Last Indicated Resolved Time R/O COVID19 05/27/2020 05/27/2020 05/30/2020 7:18 PM CDT R/O COVID19 06/14/2020 06/14/2020 06/16/2020 9:53 PM CDT documented as of this encounter Care Teams Equine Breeder Relationship Specialty Start Date End Date Carissa Isaac MD [address] [place] [address] PCP - General 03/13/09 documented as of this encounter
--- OUTSIDE RECORDS SUMMARY | 2025-04-02 22:46 | XMS_ITS | Clinical Summary ---
Author Organization [facility] Address [address] [place] [address] Care Team Providers Care Green Chain Offbearer Name Role Phone Lee Ann Huizar MD Primary Care Provider [phone] Source Comments You are receiving this document [...] for each transition of care or referral. 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 Not on file Not on file Not [...] TEST, ROUTINE Routine 01/02/2015 2:3 3 PM REFRIGERATION ENGINE OPERATOR Encounter for screening for malignant neoplasm of cervix HIV ANTIBODY Routine 06/03/2012 2:27 PM CDT Supervision of other high-risk from Last 3 Months or Most Recently Relevant to Health Maintenance Results * PAP TEST, ROUTINE (01/02/2015 2:33 PM REFRIGERATION ENGINE OPERATOR) Cytology, Pap (NOTE) Mold Filling Operator Cytology Report Patient Name: JUDE SALGADO Taken: 01/02/2015 Received: 01/03/2015 Reported: 01/11/2015 Physician(s): LEE ANN HUIZAR ([id number]) Source of Specimen Pap Test, Routine Cervical/Endocervi sharlene: Specimen Adequacy Satisfactory for evaluation. Endocervical component absent. Final Cytologic Interpretation/Res ult NEGATIVE FOR INTRAEPITHELIAL LESION OR MALIGNANCY (NILM) Electronically Signed Out By Jackie HUTCHINS (ASCP) Jackie HUTCHINS (ASCP) Pap Smear History Date of Last Menstrual Period: 12/19/2014 Microscopic Description Microscopic examination is performed. [facility] Department of Pathology [address] [place] [id number] [facility] 01/02/2015 2:33 PM REFRIGERATION ENGINE OPERATOR 01/03/2015 10:03 AM REFRIGERATION ENGINE OPERATOR us Lee Ann Huizar MD LAB_1 Final Result Performing Organization Address City/[facility]/ZIP Co de Phone Number [facility] [phone] * HIV 1/2 Antibody[0404] (06/03/2012 2:27 PM CDT) HIV 1/2 Antibody Negative (Non Reactive) NEGNR ON LICENSE OF [facility] Comment: HIV Antibody testing may be falsely negative during the window period. If the patient has had recent exposure (within the past four weeks), consider contacting Infectious Diseases for clarification. [facility] 06/03/2012 2:27 PM CDT 06/03/2012 2:30 PM CDT us Lee Ann Huizar MD LAB_1 Final Result [facility] [address] [phone] from Last 3 Months or Most Recently Relevant to Health Maintenance Insurance BCBS OUT OF STATE BCBS OUT OF STATE Advance Directives * Full Code (Latest Code Status on File) Date Activated Date Inactivated Comments 06/03/2016 7:49 AM 06/03/2016 5:38 PM Care Teams Green Chain Offbearer Relationship Specialty Start Date End Date Lee Ann Huizar MD [address] [place] [address] PCP - General 03/13/09
--- OUTSIDE RECORDS SUMMARY | 2025-04-02 22:46 | XMS_ITS | Encounter Summary ---
[facility] Address [address], [place] [address] Care Team Providers Care Costing Analyst Name Role Phone Carissa Isaac MD Primary Care Provider [phone] Encounter Details Date Type Department Care Team (Late st Contact Info) Description 12/04/2012 Correspondence [facility] RESIDENTIAL SUPPORT WORKER [address] [facility] [place] [address] Vi Bojorquez MD [address] [place] [address] [employer] SHORT TERM DISABILITY CLAIM [...] Bojorquez MD - 12/04/2012 12:00 AM CST P 3 ARMAMENT/ORDNANCE IMA TECHNICIAN documented in this encounter Plan of Treatment Not on file documented as of this encounter Visit Diagnoses Not on filedocumented in this encounter Additional Health Concerns Infection Onset Date Last Indicated Resolved Time R/O COVID19 05/27/2020 05/27/2020 05/30/2020 7:18 PM CDT R/O COVID19 06/14/2020 06/14/2020 06/16/2020 9:53 PM CDT documented as of this encounter Care Teams Costing Analyst Relationship Specialty Start Date End Date Carissa Isaac MD [address] [place] [phone] PCP - General 03/13/09 documented as of this encounter
--- OUTSIDE RECORDS SUMMARY | 2025-04-02 22:46 | XMS_ITS | Clinical Summary ---
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 PCP - General 05/17/19
--- OUTSIDE RECORDS SUMMARY | 2025-04-02 22:46 | XMS_ITS | Clinical Summary ---
Author Organization [facility] Address [address] [place] [address] Care Team Providers Care Alligator Hunter Name Role Phone Clinic, [facility] ([place], [place]) Primary Care Provider Allergies Active Allergy Reactions [...] for cervical cancer Overview (08/29/2018): Normal paps [id number], 2011 and 2015 per Care Everywhere Immunizations [...] Insurance BCBS OUT OF STATE [place] Care Teams Alligator Hunter Relationship Specialty Start Date End Date [facility], [facility] ([place], [place]) [address] [place] [address] PCP - General 03/11/19
--- OUTSIDE RECORDS SUMMARY | 2025-04-02 22:46 | XMS_ITS | Encounter Summary ---
Author Organization [facility] Address [address] [place] [address] Care Team Providers Care Director Of National Sales Name Role Phone Carissa Isaac MD Primary Care Provider [phone] Encounter Details Date Type Department Care Team (Late st Contact Info) Description 06/14/2014 Correspondence External to External, [place] [address] TREATMENT NOTIFICATION Social History Tobacco Use Types [...] documented as of this encounter Care Teams Director Of National Sales Relationship Specialty Start Date End Date Carissa Isaac MD [address] [place] [phone] PCP - General 03/13/09 documented as of this encounter
--- OUTSIDE RECORDS SUMMARY | 2025-04-02 22:46 | XMS_ITS | Encounter Summary ---
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
--- OUTSIDE RECORDS SUMMARY | 2025-04-02 22:46 | XMS_ITS | Encounter Summary ---
[facility] Address [address] [place] [address] Care Team Providers Care Public Works Manager Name Role Phone Carissa Isaac MD Primary Care Provider [phone] Encounter Details Date Type Department Care Team [...] as of this encounter Progress Notes * [facility], PROVIDER - 01/02/2013 12:00 AM CST TY LOAN SPECIALIST documented in this encounter Plan of Treatment Not on file documented as of this encounter Visit Diagnoses Not on filedocumented in this encounter Additional Health Concerns Infection Onset Date Last Indicated Resolved Time R/O COVID19 05/27/2020 05/27/2020 05/30/2020 7:18 PM CDT R/O COVID19 06/14/2020 06/14/2020 06/16/2020 9:53 PM CDT documented as of this encounter Care Teams Public Works Manager Relationship Specialty Start Date End Date Carissa Isaac MD [address] [place] [address] PCP - General 03/13/09 documented as of this encounter
[2025-04-02 23:02] LABS: Basophils Absolute Auto 0.09 K/uL (0.00-0.30); Basophils Percent Auto 1.1 % (0.0-3.0); Eosinophils Absolute Auto 0.25 K/uL (0.00-0.50); Hemoglobin* 13.8 gm/dL (12.0-16.0); Immature Granulocytes Abs Auto 0.02 K/uL (0.00-0.30); Immature Granulocytes Pct Auto 0.2 %; Lymphocytes Percent Auto 19.2 % (20-44); Mean Corpuscular HGB Conc 34 gm/dL (32-36); Mean Corpuscular Hemoglobin 29 pg (26-34); Mean Corpuscular Volume 87 fL (80-100); Monocytes Percent Auto 9.6 % (0.0-11.0); Neutrophils Absolute Auto 5.58 K/uL (1.7-7.0); Neutrophils Percent Auto 66.9 % (42.0-72.0); Platelet Count* 265 K/uL (140-440); RDW Coefficient of Variation % 11.8 % (11.5-15.5); Red Blood Count 4.69 m/uL (4.00-5.20); White Blood Count* 8.34 K/uL (4.50-11.00)
[2025-04-02 23:08] LABS: Chloride* 104 mmol/L (96-114); Potassium* 3.7 mmol/L (3.6-5.1); Sodium* 139 mmol/L (135-149)
[2025-04-02 23:11] LABS: Anion Gap 7 mEq/L (7-15); Blood Urea Nitrogen* 11 mg/dL (5-24); Calcium* 9.1 mg/dL (8.4-10.6); Carbon Dioxide* 28 mmol/L (20-32); Creatinine* 0.6 mg/dL (0.5-1.5); Estimated Glomerular Filt Rate 117 ml/min; Glucose* 101 mg/dL (60-115)
[2025-04-02 23:13] LABS: Slide Review Reflex No
[2025-04-03 00:20] VITALS: BP 144/88; PULSE 64; RESP 18; O2SAT 99
[2025-04-03] MEDS: 0.9 % SODIUM CHLORIDE 1000 ml 1,000 ML 1200 ML IV (00:20)
== END 2025-04-03 00:55 | disposition home or self-care (01) ==
PROVIDERS: Emergency Provider Emergency Medicine
DX: R07.89 Other chest pain (principal); I49.3 Ventricular premature depolarization
CPT/HCPCS: 36415; 71045; 80048; 83735; 84484; 85025; 99284; J7030